=== PATIENT | male | born 1960 | race Caucasian/White ===

== ENCOUNTER → 2016-07-27 | Day surgery (SDC) | payer BC ==
[~2016-07-27] MED LIST: NO MEDICATIONS
--- NOTE | ~2016-07-27 | OR ---
Unit #: [id number] #: [id number] Patient: CHAO JARRETT [id number] [address] [place], [place] [address] [id number] MR#: [id number] NAME: CHAO JARRETT. ROOM: Date of Procedure: 07/27/2016 Admission Date: 07/27/2016 Surgeon: Toan Barnhart III, M.D. : 1960 Attending Physician: Toan Barnhart III, M.D. Referring Physician: Toan Barnhart III, M.D. OPERATIVE REPORT PREOPERATIVE DIAGNOSIS Right inguinal hernia. POSTOPERATIVE DIAGNOSES Right inguinal hernia and left inguinal hernia. PROCEDURES PERFORMED Laparoscopic right inguinal hernia repair with mesh and laparoscopic left inguinal hernia repair with mesh. DOORS PREFITTER Dr. Chris Magana. SPECIMENS None. COMPLICATIONS None apparent. ESTIMATED BLOOD LOSS Minimal. INDICATIONS FOR PROCEDURE This is a 55-year-old gentleman, who presented to Dr. Paz's office with about a one month history of a bulge in the right groin that had some mild discomfort to it. He was scheduled for laparoscopic right inguinal hernia repair and also understands that if there is a small hernia present on the left side, then that would be fixed at the same time. DESCRIPTION OF PROCEDURE After consent was obtained, the patient was brought to the operating room and placed in the supine position. General anesthetic was administered, and his abdomen was prepped and draped in standard surgical fashion. I elevated the umbilicus. I used the Veress needle to obtain CO2 pneumoperitoneum. A 5 mm trocar was placed in that location, and I performed diagnostic laparoscopy and noted a right inguinal hernia that had both a direct and indirect component. Additionally, he had a small left indirect inguinal hernia as well as a direct inguinal hernia on the left side as well. The pneumoperitoneum was released. I then incised the fibers of the left rectus sheath. I swept the rectus muscle laterally and developed a tunnel with a Hilary clamp all the way down to the pubic tubercle. I then deployed a balloon dissector posterior to the rectus Unit #: [id number] #: [id number] Patient: CHAO JARRETT muscle and this was insufflated under direct visualization. Once I had the preperitoneal space created, I then removed this and placed the balloon trocar and created a CO2 pneumopreperitoneum. Next, I placed two 5 mm trocars along the midline. I began by turning my attention to the right side. I dissected out the pubic tubercle and the retropubic space. I then was able to elevate the epigastrics and identified the lateral space and developed that area. I then reduced the direct inguinal hernia completely and dissected out the cord structures. I identified the right inguinal hernia sac and dissected this away from the cord structures. It extended all the way down into the scrotum. It was transected distally and then I used an Endoloop to ligate it proximally. I then dissected this all the way back to the peritoneal reflection. Once I had that dissection completed, I turned my attention to the left side. Again, I dissected out the pubic tubercle as well as Satinder ligament. I reduced the direct inguinal hernia and created the lateral space. I dissected the left indirect sac off cord structures all the way back to the peritoneal reflection and obtained circumferential control around the cord structures. Once I had both dissections completed, I then took both a left and right 3DMax mesh that was large and rolled it up and passed it to the preperitoneal space. They were oriented on the appropriate side, and once in good position, I used a SorbaFix Tacker to fixate it medially to the pubic tubercle and laterally to the external oblique. Once the mesh was in good position, I desufflated the preperitoneal space and released the pneumoperitoneum. I removed the trocars. I then reapproximated the fascial defect at the infraumbilical port site with an interrupted 0 Vicryl suture and the skin edges were all injected with 0.25% plain Marcaine. The skin edges were then reapproximated with interrupted 4-0 Vicryl subcuticular suture. Steri-Strips were then applied. The patient tolerated the procedure without any problems and returned to the recovery room in stable condition. Dictated by.Shin. Toan Barnhart III, M.D. VCL/karly TD: 07/28/2016 20:56 JOB #: [id number] OPERATIVE REPORT Page 1 of 1 X Toan Barnhart III, MD PROCEDURE OPERATIVE NOTE
== END | disposition home or self-care (01) ==
LOC: CSUR 05:35
DX: K40.20 Bilateral inguinal hernia, without obstruction or gangrene, not specified as recurrent (principal); Z88.1 Allergy status to other antibiotic agents; Z90.89 Acquired absence of other organs
CPT/HCPCS: C1781; J0131; J0330; J0690; J2250; J2405; J2710; J3010